=== PATIENT | male | born 1965 | race Caucasian/White ===

== ENCOUNTER 2018-02-10 23:35 | Inpatient (IN) ==
[2018-02-10] MEDS ORDERED: Ipratropium/Albuterol Neb 3 ML IH ONE (23:45)
[2018-02-10] MEDS ORDERED: methylPREDNISolone 125 MG/2 ML VIAL IVP ONE (23:45)
--- NOTE | 2018-02-10 23:49 | Emergency Department Note ---
Disposition Clinical Impression: Asthma with exacerbation Qualifiers: Asthma severity: severe Asthma persistence: unspecified Qualified Code(s): J45.901 - Unspecified asthma with (acute) exacerbation Disposition: Admitted As Inpatient Condition: Fair Referrals: NONE,PCP [Primary Care Provider] - Forms: ED Satisfaction Letter Time of Disposition: 01:04 General Adult HPI - General Chief complaint: ED Shortness of Breath/Dyspnea Stated complaint: Jenae Time Seen by Provider: 02/10/18 23:36 Source: patient, EMS Mode of arrival: EMS Limitations: no limitations Nursing Notes Reviewed: Yes Vital Signs Reviewed: Yes - History of Present Illness HPI Narrative: Couple day history of increasing shortness of breath. States that it got significantly worse this morning. Has used his rescue inhaler several times a day with no relief. Reports a history of asthma and COPD. States he was admitted to the hospital 3 weeks ago for the same. He denies a productive cough. He denies any chest pain. He has tachycardic and tachypneic on arrival. Pain Scale: 4 - Related Data Allergies Allergy/AdvReac Type Severity Reaction Status Date / Time Tetanus Vaccines and Toxoid Allergy Swelling Verified 02/10/18 23:39 of Lip/Tongue/Throat All systems ED: reviewed and negative except as stated. Constitutional: Denies: fever, chills ENT ED: Denies: congestion Cardiovascular: Denies: chest pain, palpitations, syncope Respiratory: Reports: dyspnea, wheezes. Denies: cough, hemoptysis, sputum production Gastrointestinal: Denies: abdominal pain, nausea, vomiting, diarrhea Genitourinary: Denies: urgency, dysuria, frequency, hematuria Musculoskeletal: Denies: back pain, neck pain Integumentary: Reports: rash (Psoriasis plaques) Neurological: Denies: weakness Past Medical History - Past Medical History Attestation: Yes The following information was validated with the patient. Source: patient Medical history: Reports: asthma, COPD Psychiatric history: Reports: no psych history - Social History Smoking Status: Former smoker Smokeless Tobacco Status: Yes Alcohol use: Reports: none Drug use: Reports: none Physical Exam - General Limitations: no limitations General appearance: alert, in no apparent distress - Head Head exam: atraumatic, normocephalic, normal inspection - Eye Eye exam: Present: normal appearance, PERRL, EOMI - ENT ENT exam: normal exam, normal oropharynx, mucous membranes moist - Neck Neck exam: Present: normal inspection, full ROM, trachea midline - Chest Chest inspection: Present: normal inspection, symmetric chest wall rise. Absent : tenderness - Respiratory Respiratory exam: Present: respiratory distress, wheezes, accessory muscle use, other (Tight lung sounds bilaterally.) - Cardiovascular Cardiovascular exam: Present: regular rate, normal rhythm, normal heart sounds - Abdominal Exam Abdominal exam: Present: soft, Non-Tender. Absent: tenderness, distention, guarding, rebound, rigidity - Extremities Exam Extremities exam: Present: normal inspection, full ROM, normal capillary refill. Absent: tenderness, pedal edema - Back Exam Back exam: Present: normal inspection, full ROM. Absent: tenderness - Neurological Exam Neurological exam: Present: alert, oriented X3 - Psychiatric Psychiatric exam: Present: anxious - Skin Skin exam: Present: warm, dry, intact, normal color, rash (Psoriasis plaques on bilateral elbows. Multiple areas on lower back.) Course Course Narrative: Male patient presenting to the emergency room complaining of a three-day history of shortness of breath. He states it progressively got worse with the exacerbation being this morning when he was asleep. He has an over the road pharmacy benefit manager. CT does have a history of COPD and asthma. Does use rescue inhalers frequently however he also has a nebulizer that he left at home. He denies any history of DVTs. He is a nonsmoker. He does have psoriasis with multiple plaques about his arms and lower back. He is ambulatory in the emergency department and tripods as soon as he sits on the bed. He is retracting. We placed him on oxygen we will get a chest x-ray. EMS gave him a DuoNeb during transport. We will give him 3 while he is here as well as a dose of steroids. He states that this happens to him frequently. He states that he generally has to be admitted to get his breathing under control. Patient is tachycardic and tachypneic at this time. - Reevaluation(s) Reevaluation #1: Patient's chest x-ray shows no significant signs of of a pneumonia. He does have emphysema. He is breathing easier now after his duo nebs and steroids however does still have significant wheezing. We will admit patient for an asthma exacerbation. Time: 12:30 - Consultations Consultation #1: Patient was accepted in stable condition by Time: 01:00 Vital Signs Temperature 97.6 F 02/10/18 23:39 Pulse Rate 135 02/10/18 23:39 Respiratory Rate 22 02/10/18 23:39 Blood Pressure 155/101 02/10/18 23:39 O2 Sat by Pulse Oximetry 92 02/10/18 23:39 Temperature 97.6 F 02/10/18 23:39 Pulse Rate 127 02/11/18 00:51 Respiratory Rate 22 02/11/18 00:51 Blood Pressure 130/84 02/11/18 00:51 O2 Sat by Pulse Oximetry 91 02/11/18 00:51 Oxygen Delivery Oxygen Delivery Room Air Medical Decision Making - Medical Records Medical records reviewed: Yes I reviewed the patient's medical records. - Lab Data Lab results reviewed: Yes I reviewed the patient's lab results. Result diagrams: 02/10/18 23:48 Lab Results 02/10/18 02/10/18 Range/Units 23:48 23:48 WBC 6.9 (4.3-11.1) K/mcL RBC 4.37 (4.19-5.50) M/mcL Hgb 13.6 (12.9-16.9) g/dL Hct 41.1 (37.5-50.1) % MCV 94.1 (83.0-100.0) fL MCH 31.1 (28.0-33.3) pg MCHC 33.1 (31.6-35.5) g/dL RDW 13.2 (11.5-14.5) % Plt Count 247 (140-400) K/mcL MPV 10.3 (9.4-12.4) fL Immature Gran % 0.3 (0-4) % Seg Neutrophils % 50.9 % Lymphocytes % 27.1 % Monocytes % 9.6 % Eosinophils % 11.2 % Basophils % 0.9 % Neutrophils # 3.5 (1.6-8.9) K/mcL Lymphocytes # 1.9 (0.6-4.6) K/mcL Monocytes # 0.7 (0.0-1.3) K/mcL Eosinophils # 0.8 H (0.0-0.6) K/mcL Basophils # 0.1 (0.0-0.2) K/mcL Troponin I < 0.03 (< 0.04) ng/mL - Radiology Data Radiology results reviewed: Yes I reviewed the patient's radiology results. Chest X-Ray 02/10/18 23:45 IMPRESSION: No radiographic evidence of acute cardiopulmonary disease. Findings suggesting emphysema. D/ / Rakesh Herrmann / Rakesh Herrmann Interpreting Provider: Rakesh Herrmann - EKG Data EKG #1 EKG attestation: Yes I reviewed and interpreted this EKG. EKG results narrative: Sinus tachycardia at a rate of 133. AR interval is 137. QRS duration is 74. QT is 330. QTC is 410. No signs of acute ischemia. there is a significant amount of artifact. Attestation Statement - Attestation Attestation: I examined this patient and my medical decision-making was reviewed with the Resident Physician, Dr. Doran. I agree with the documented findings, disposition and treatment plan as described except to the extent set forth below. Patient is a 52-year-old white male, nonsmoker, with a history of asthma who arrives by ambulance with an acute exacerbation with hypoxia. Patient with increased work of breathing and decreased air movement on auscultation on arrival. Patient reports that he has had for prior hospitalizations in the past year for exacerbations of his asthma most recent evaluation was in the ER and he was discharged home 3 weeks ago. Patient states that he is noticed increased sensitivity to seasonal allergies including rabbit that his daughter recently adopted, smoke exposure in the home second hand, and seasonal changes. Patient denies any fevers or chills, no receding URI symptoms, states that this exacerbation began on Friday and has just gradually worsened. Patient is a regional owner operator truck driver and he said 54 he would feel better after getting out of his house with the smoke exposure and getting on the road but his breathing continued to worsen. I agree with patient's physical exam findings as documented. On arrival patient with increased work of breathing, tachypnea, hypoxia on room air was placed on supplemental nasal cannula oxygen. Patient was started on IV steroids, DuoNeb, labs and chest x-ray. EKG shows sinus tachycardia without acute ischemia. On reevaluation patient improved although still with his joint Wheezing and persistent hypoxia on room air with continued increased work of breathing. Patient will be admitted for an acute exacerbation of asthma, discussed with hospitalist who accepted the patient for admission for further evaluation and management.
[2018-02-10 23:58] LABS: Eosinophils % 11.2 %; Hematocrit 41.1 % (37.5-50.1); Hemoglobin 13.6 g/dL (12.9-16.9); Immature Granulocytes % 0.3 % (0-4); Lymphocytes % 27.1 %; Mean Corpuscular HGB Conc 33.1 g/dL (31.6-35.5); Mean Corpuscular Hemoglobin 31.1 pg (28.0-33.3); Mean Corpuscular Volume 94.1 fL (83.0-100.0); Mean Platelet Volume 10.3 fL (9.4-12.4); Monocytes % 9.6 %; Platelet Count 247 K/mcL (140-400); Red Blood Count 4.37 M/mcL (4.19-5.50); Red Cell Distribution Width 13.2 % (11.5-14.5); Segmented Neutrophils % 50.9 %
[2018-02-10 23:59] LABS: Basophils # 0.1 K/mcL (0.0-0.2); Basophils % 0.9 %; Eosinophils # 0.8 K/mcL (0.0-0.6); Lymphocytes # 1.9 K/mcL (0.6-4.6); Monocytes # 0.7 K/mcL (0.0-1.3); Neutrophils # 3.5 K/mcL (1.6-8.9)
[2018-02-11] MEDS ORDERED: 0.9 % Sodium Chloride 1,000 ML IVC ONE (00:20)
[2018-02-11 00:23] LABS: Troponin I < 0.03 ng/mL (< 0.04)
[2018-02-11 01:57] LABS: BUN/Creatinine Ratio 10 (6-26); Blood Urea Nitrogen 10 mg/dL (6-20); Carbon Dioxide 24 mEq/L (23-29); Chloride 106 mEq/L (98-107); Glucose 95 mg/dL (70-105); Osmolality,Calculated 289 (280-300); Potassium 3.6 mEq/L (3.5-5.1); Sodium 140 mEq/L (136-145); eGFR For African Americans > 60 (> 60); eGFR For Non-African Americans > 60 (> 60)
[2018-02-11] MEDS ORDERED: Acetaminophen 325 MG TABLET PO PRN (03:22)
[2018-02-11] MEDS ORDERED: traMADol 50 MG TABLET PO PRN (03:22)
[2018-02-11] MEDS ORDERED: Naloxone 0.4 MG/ML INJ IVP PRN (03:22)
[2018-02-11] MEDS ORDERED: Ipratropium/Albuterol Neb 3 ML IH PRN (03:24)
[2018-02-11] MEDS: Ipratropium/Albuterol Neb 3 ML IH SCH ×6 (04:23→23:23)
[2018-02-11] MEDS: *HR* Enoxaparin 40 MG/0.4 ML SYRINGE SQ SCH (05:57)
[2018-02-11 07:04] LABS: Hematocrit 39.7 % (37.5-50.1); Hemoglobin 13.1 g/dL (12.9-16.9); Mean Corpuscular Hemoglobin 31.1 pg (28.0-33.3); Mean Corpuscular Volume 94.3 fL (83.0-100.0); Mean Platelet Volume 10.6 fL (9.4-12.4); Platelet Count 231 K/mcL (140-400); Red Blood Count 4.21 M/mcL (4.19-5.50); Red Cell Distribution Width 13.2 % (11.5-14.5)
[2018-02-11 07:37] LABS: Chol/HDL Ratio 3.7 (0-4.9)
[2018-02-11] MEDS: methylPREDNISolone 125 MG/2 ML VIAL IVP SCH ×3 (08:30→23:18)
--- NOTE | 2018-02-11 10:27 | Internal Med History&Physical ---
<Criss Lynn - Last Filed: 02/11/18 10:59> Date of Encounter: 02/11/18 Time of Encounter: 10:25 Assessment and Plan (1) COPD exacerbation Current visit: Yes Status: Acute has known history COPD, former smoker. Patient reports for previous hospital admissions for COPD exacerbations this year. Does not follow with pulmonology. Presented with progressive shortness of breath over the last 2-3 days. No fever, chills, no s. increase in sputum production. CXR with emphysema, otherwise non-acute. Clinically appears COPD exacerbation with mild respiratory distress and wheezing. 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 Continue IV steroids , scheduled bronchodilators. Hold on ATB as no increase in sputum production, afebrile and no elevated WBC. Resp PCR, urinary antigens pending. Chest CTA to rule out pulmonary embolism. (2) DVT prophylaxis Current visit: Yes Status: Acute [facility] Internal Medicine - H&P: HPI Chief complaint: SOB Admitted From: Home Plans for Post Hospital Care: Home History of present illness: Mr. Bergeron is a 52 year old male with PMH COPD who presented to [facility] on 2017 with c/o SOB. He was found t be in an acute COPD exacerbation and was admitted for IV steroids, bronchodilators and further work-up/treatment. Information obtained from chart review and patient report. Patient reports progressive shortness of breath over the last 2-3, SOB improved with rest and worsened with activity. Says he has been hospitalized 5 times this year for COPD exacerbation, he does not follow with pulmonology. No fevers or chills. No chest pain. No increase in sputum production. Feels better on my exam but still SOB. Past Med Surg Social Fam HX - Past Medical History Medical history: asthma, COPD Psychiatric history: no psych history - Past Surgical History Surgical History: appendectomy, cholecystectomy - Social History Smoking Status: Former smoker Smokeless Tobacco Status: Yes Alcohol use: none Drug use: none - Family History Mother Living Status: Hx Family Cardiac Disorders: Yes Father Living Status: Hx Family Cardiac Disorders: Yes Internal Medicine - H&P: Meds Budesonide/Formoterol 80/4.5 [Symbicort 80/4.5] 2 puff IH BID 02/11/18 [History ] Ipratropium/Albuterol Sulfate [Combivent Respimat Inhal [place]] 1 puff IH QID [History] 3 Allergy/AdvReac Type Severity Reaction Status Date / Time Tetanus Vaccines and Toxoid Allergy Swelling Verified 02/10/18 23:39 of Lip/Tongue/Throat All Systems PM: A 10-system review of systems was performed and is negative for pertinent findings except as documented above in the HPI. - Constitutional Constitutional: no chills, no fever(s), no night sweats - EENT Eyes: no change in vision, no discharge, no pain, no photophobia Ears: no ear discharge, no ear pain, no tinnitus Nose, mouth and throat: no dysphagia, no nasal discharge, no neck pain, no sore throat - Cardiovascular Cardiovascular ROS IM: no chest pain, no diaphoresis, no dyspnea, no lightheadedness, no palpitations, no syncope - Respiratory Respiratory: cough, dyspnea on exertion, no dyspnea, no wheezing, no excessive phlegm production, no change in phlegm color - Gastrointestinal Gastrointestinal: no abdominal pain, no diarrhea, no hematemesis, no hematochezia, no melena, no nausea, no vomiting - Musculoskeletal Musculoskeletal ROS IM: no numbness, no tingling - Integumentary Integumentary IM: no rash, no unusual bruising - Neurological Neurological ROS: no confusion, no convulsions, no focal weakness, no numbness, no tingling, no tremor(s) - Hematologic/Lymphatic Hematologic/Lymphatic: no easy bruising - Constitutional Vitals: Temp Pulse Resp BP Pulse Ox 97.9 F 97 14 108/58 2 02/11/18 07:52 02/11/18 07:52 02/11/18 07:52 02/11/18 07:52 02/11/18 09:00 General appearance: Present: mild distress, A&O X 3 - Head Head exam: Present: atraumatic, normocephalic - Eye Eye exam: Present: PERRL, conjuntiva pink, sclera anicteric Pupils: Present: PERRL - Neck Neck exam general surgery: Present: supple, trachea midline. Absent: lymphadenopathy - Respiratory Respiratory exam: Present: decreased breath sounds, respiratory distress. Absent: accessory muscle use, rales, rhonchi, wheezes - Cardiovascular Cardiovascular exam: Present: RRR, +S1, +S2. Absent: diastolic murmur, gallop, rubs, systolic murmur - GI/Abdominal GI/Abdominal exam: Present: normal bowel sounds, soft, no peritoneal signs. Absent: distended, tenderness - Extremities Exam Extremities exam: Present: warm, radial pulses palpable and symmetrical. Absent : calf tenderness, cyanotic, pedal edema - Neurological Exam Neurological exam: Present: CN II-XII intact, oriented X3, no focal deficits. Absent: pronater drift, facial droop, speech deficit - Skin Skin exam: Present: dry, intact Internal Med - H&P Results - Labs CBC & Chem 7: 02/11/18 06:16 02/10/18 23:48 Labs: Short CBC 02/11/18 Range/Units 06:16 WBC 4.2 L (4.3-11.1) K/mcL Hgb 13.1 (12.9-16.9) g/dL Hct 39.7 (37.5-50.1) % Plt Count 231 (140-400) K/mcL <lEif Hinton G - Last Filed: 02/11/18 14:36> Date of Encounter: 02/11/18 Internal Medicine - H&P: HPI History of present illness: Mr. Bergeron is a 52 year old male All Systems PM: A 10-system review of systems was performed and is negative for pertinent findings except as documented above in the HPI. - Constitutional Vitals: Temp Pulse Resp BP Pulse Ox 98.1 F 108 20 133/77 96 02/11/18 11:41 02/11/18 11:41 02/11/18 11:41 02/11/18 11:41 02/11/18 11:41 Internal Med - H&P Results - Labs CBC & Chem 7: 02/11/18 06:16 02/10/18 23:48 Labs: Short CBC 02/11/18 Range/Units 06:16 WBC 4.2 L (4.3-11.1) K/mcL Hgb 13.1 (12.9-16.9) g/dL Hct 39.7 (37.5-50.1) % Plt Count 231 (140-400) K/mcL - Impressions ITS Impressions Chest CTA 02/11/18 10:24 IMPRESSION: No evidence of pulmonary embolism or acute pulmonary abnormality. Clear lungs. Slight bronchial wall thickening questioned which can be seen with acute or chronic bronchitis. Moderate emphysematous changes. D/ / Claudio Bergeron MD / Claudio Bergeron MD Interpreting Provider: Claudio Bergeron MD - Attending Attestation I have reviewed the history and physical examination,obtained and documented by the nurse practitioner and I personally participated in the dunn components and did a full bedside examination. I have discussed the case and management of the patient's care. Briefly this is a 52-year-old male with a past medical history of COPD who does not use home oxygen and has had multiple recurrent COPD exacerbation admissions in the recent few months, presented for the first time to [facility] with what looks like another COPD exacerbation. The patient stated that he was using his rescue inhalers multiple times and that is what prompted him to come to the hospital. He had experienced relief so far from IV steroids as well as breathing treatments. I agree with the initial assessment and plan as documented in the H&P My recommendations at the time of discharge whenever he is cleared, are to send the patient on prolonged steroid taper off at least 10 days duration and I will give him at least 1-2 refills as well. He does need to follow up with his lung physician as an outpatient. Another consideration could be for Spiriva at bedtime for better symptom control. I am also not opposed to adding a an antibiotic for a short duration since it has beneficial effect in morbidity, length of stay Plan of care discussed with nurse practitioner
[2018-02-11] MEDS: Budesonide/Formoterol 80/4.5 MDI IH SCH ×2 (10:43→20:27)
[2018-02-11] MEDS: Levofloxacin 750 MG/150 ML 750 MG/150 ML BAG IVPB SCH (14:00)
--- NOTE | 2018-02-11 16:41 | Electrocardiograph Report ---
[place] [id number] Test Date: 2018-02-10 Pat Name: Elder Bergeron Department: 102 Room: [facility] Gender: M Clinical Aide: Jeff : 1965 Requested By: Navya Doran Order Number: [id number] Reading MD: Marv Panchal DO Measurements Intervals [place] Rate: 133 P: 87 NE: 137 QRS: 82 QRSD: 74 T: 2 QT: 332 QTc: 410 Interpretive Statements SINUS TACHYCARDIA NONSPECIFIC ST & T-WAVE ABNORMALITY Electronically Signed On 02-11-2018 16:39:40 EDT by Marv Panchal DO
[2018-02-12] MEDS: Ipratropium/Albuterol Neb 3 ML IH SCH ×3 (03:50→11:54)
[2018-02-12 04:51] LABS: Hematocrit 40.9 % (37.5-50.1); Hemoglobin 13.6 g/dL (12.9-16.9); Mean Corpuscular HGB Conc 33.3 g/dL (31.6-35.5); Mean Corpuscular Hemoglobin 31.4 pg (28.0-33.3); Mean Corpuscular Volume 94.5 fL (83.0-100.0); Mean Platelet Volume 10.5 fL (9.4-12.4); Platelet Count 242 K/mcL (140-400); Red Blood Count 4.33 M/mcL (4.19-5.50); Red Cell Distribution Width 13.7 % (11.5-14.5)
[2018-02-12 05:11] LABS: BUN/Creatinine Ratio 12 (6-26); Blood Urea Nitrogen 10 mg/dL (6-20); Calcium 9.5 mg/dL (8.6-10.3); Carbon Dioxide 27 mEq/L (23-29); Chloride 104 mEq/L (98-107); Glucose 161 mg/dL (70-105); Osmolality,Calculated 291 (280-300); Potassium 4.4 mEq/L (3.5-5.1); Sodium 139 mEq/L (136-145); eGFR For African Americans > 60 (> 60); eGFR For Non-African Americans > 60 (> 60)
[2018-02-12] MEDS: *HR* Enoxaparin 40 MG/0.4 ML SYRINGE SQ SCH (06:15)
[2018-02-12] MEDS: Budesonide/Formoterol 80/4.5 MDI IH SCH (07:32)
[2018-02-12 07:56] VITALS: BP 109/72
[2018-02-12] MEDS: methylPREDNISolone 125 MG/2 ML VIAL IVP SCH (08:25)
[2018-02-12] MEDS: Levofloxacin 750 MG/150 ML 750 MG/150 ML BAG IVPB SCH (10:54)
--- NOTE | 2018-02-12 11:30 | Discharge Summary ---
Orders not resulted at time of discharge: Pending orders 02/11/18 10:23 Legionella Antigen [RM] Stat Respiratory Infection Panel [MOLMIC] Stat S. Pneumoniae Antigen [RM] Stat Date of Encounter: 02/12/18 Time of Encounter: 10:00 - Discharge Diagnosis (1) COPD exacerbation Priority: Primary Status: Acute Hospital course: Patient is a 52-year-old male with past medical history significant for COPD who presents the ER on 02/11/18 due to shortness of breath. Patient reports of symptoms for several days with dyspnea on exertion and shortness of breath. Patient does report of being hospitalized approximate 4 times this year. 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 She was admitted to the medical surgical floor for COPD exacerbation. During patients hospital stay his symptoms improved on IV steroids dual nebs and antibiotics. He will be discharged home to complete a 7 day course of azithromycin and a steroid taper. Patient will follow up with primary care provider for referral for pulmonology and management of COPD. - Time Spent with Patient Total time spent providing and/or coordinating discharge services: Less than 30 minutes - Discharge Medications Prescriptions: Azithromycin [Zithromax Tri-Berny] 500 mg PO DAILY 7 Days #7 tablet predniSONE [PredniSONE] 10 mg PO DAILY #39 tablet Home Medications: Budesonide/Formoterol 80/4.5 [Symbicort 80/4.5] 2 puff IH BID 02/11/18 [History ] Ipratropium/Albuterol Sulfate [Combivent Respimat Inhal [place]] 1 puff IH QID [History] Azithromycin [Zithromax Tri-Berny] 500 mg PO DAILY 7 Days #7 tablet 02/12/18 [Rx] predniSONE [PredniSONE] 10 mg PO DAILY #39 tablet 02/12/18 [Rx] Allergies/Adverse Reactions: 3 Allergy/AdvReac Type Severity Reaction Status Date / Time Tetanus Vaccines and Toxoid Allergy Swelling Verified 02/10/18 23:39 of Lip/Tongue/Throat Date of admission: 02/11/18 03:22 Primary care physician: PCP NONE - Constitutional Vitals: Temp Pulse Resp BP Pulse Ox 97.5 F L 77 15 109/72 98 02/12/18 07:54 02/12/18 07:54 02/12/18 07:54 02/12/18 07:54 02/12/18 08:28 General appearance: Present: mild distress, A&O X 3, no acute distress - Respiratory Respiratory exam: Present: CTAB. Absent: accessory muscle use, rales, rhonchi, wheezes - Cardiovascular Cardiovascular exam: Present: RRR, +S1, +S2. Absent: diastolic murmur, gallop, rubs, systolic murmur - Patient Status Disposition: Home, Self-Care Condition: Fair - Discharge Instructions Instructions: Prednisone (By mouth), Azithromycin (By mouth), Chronic Obstructive Pulmonary Disease (DC) Follow Up With: NONE,PCP [Primary Care Provider] -
== END 2018-02-12 13:39 | disposition home or self-care (01) | DRG 192 ==
LOC: EMEROO 23:35 → 2SOUTHHOLD 23:35 → SUATTDRO 02-11 03:22
PROVIDERS: ADMIT Internal Medicine Cardiovascular Disease; ATTEND Hospitalist